=== PATIENT | female | born 1985 | race Caucasian/White ===

== ENCOUNTER 2020-12-14 19:11 | Emergency (ER) | payer OTHER, SELFPAY ==
--- NOTE | ~2020-12-14 | XR_ITS ---
EXAMINATION: XR foot LT min 3V EXAM DATE: 12/14/2020 19:30 INDICATION: Pain lt distal lateral metatarsals x 4 weeks s/p running. TECHNIQUE: Left foot dorsoplantar, lateral and oblique projections obtained and reviewed. Comparison is made to prior examination from 09/16/2016. FINDINGS: Left metatarsal bones unremarkable. No periosteal reaction to suggest a subacute metatar ezequiel stress fracture. Please note that acute stress fractures may not be radiographically apparent. Fo llow-up can be obtained if symptoms persist. No radiopaque foreign bodies identified. IMPRESSION: Unremarkable left foot exam. Follow-up can be obtained if symptoms persist. Reviewed, dictated and finalized at location A.
[2020-12-14 19:16] VITALS: BP 124/76; PULSE 60; RESP 16; TEMP 36.6; O2SAT 100
--- NOTE | 2020-12-14 19:34 | ED.LOWEXIN ---
HPI - Extremity Injury (Lower) General Chief Complaint: Extremity Injury, Lower Stated Complaint: left pain Source: patient Mode of arrival: ambulatory Limitations: no limitations History of Present Illness HPI Narrative: Patient is a 35-year-old female who presents complaining of left foot pain. She denies known injury to the left foot. Patient reports she has been training for the past 22 weeks for the [employer]. She reports over the past month developing pain in the left foot. She reports using ice, denies taking bjfu-evf-womvesh medications. Patient reports she has continued to run. Patient reports increased pain over the past week. She denies significant medical history. She denies all other complaints this time. MD complaint: foot injury Related Data Home Medications Medication Instructions Recorded Confirmed No Home Medications 12/14/20 12/14/20 Allergies Allergy/AdvReac Type Severity Reaction Status Date / Time No Known Allergies Allergy Verified 12/14/20 19:18 Review of Systems Review of Systems: CONSTITUTIONAL: Denies fever, chills, or sweats. EYES: Denies visual changes, redness, or discharge. ENT: Denies rhinorrhea, congestion, sore throat, or otalgia. CARDIOVASCULAR: Denies chest pain, palpitations, or edema. RESPIRATORY: Denies cough or dyspnea. GASTROINTESTINAL: Denies abdominal pain, nausea, vomiting, or diarrhea. GENITOURINARY: Denies dysuria or hematuria. SKIN: Denies rash or itching. MUSCULOSKELETAL: Reports left foot pain. NEUROLOGIC: Denies headache, numbness, dizziness, or weakness. PSYCHIATRIC: Denies anxiety or depression. [facility] Social History Social History (Updated 12/14/20 @ 19:36 by CORNELIUS Bose) Smoking status: Never smoker Alcohol intake: current Alcohol use details: Occasional Substance use: never Living arrangements: with family Comments At the time of signature, I have reviewed and agree with nursing past medical, surgical, social, and family history unless otherwise noted. Please see nursing chart for further information. There is no relevant family history pertinent to the presenting complaint. Exam Narrative: GENERAL: Well-appearing, well-nourished, and in no acute distress. HEAD: Normocephalic, atraumatic. EYES: EOMI. No redness or drainage. Conjunctiva are normal. ENT: Mucous membranes pink and moist. CHEST: No respiratory distress. HEART: Regular rate and rhythm. EXTREMITIES: Normal range of motion. Tenderness with palpation over fourth and fifth metatarsals of left foot, no edema or ecchymosis, no visible deformities, distal sensation intact, good capillary refill SKIN: Warm, dry, no rash. NEURO: No focal deficits. Alert and oriented x3. Gait steady. PSYCH: Normal affect. No signs of depression or anxiety. Course Vital Signs Vital signs: Vital Signs Temperature 36.6 C 12/14/20 19:16 Pulse Rate 60 12/14/20 19:16 Respiratory Rate 16 12/14/20 19:16 Blood Pressure 124/76 12/14/20 19:16 Pulse Oximetry 100 12/14/20 19:16 Temperature 36.6 C 12/14/20 19:16 Pulse Rate 60 12/14/20 19:16 Respiratory Rate 16 12/14/20 19:16 Blood Pressure 124/76 12/14/20 19:16 Pulse Oximetry 100 12/14/20 19:16 MDM - Extremity Injury (Lower) MDM Narrative Medical decision making narrative: Patient's x-ray shows no acute osseous injuries. Discussed with patient possible stress fractures and how they do not show on x-ray. Patient instructed on taking a break from running for a week, rest, ice, elevation and use of Yazan wrap. Patient agrees with plan of care. Patient given referrals for orthopedics and podiatry if pain persist. Patient is stable for discharge to home with outpatient follow-up as needed. Differential Diagnosis Differential diagnosis: Likely other (Sprain, strain, fracture, contusion) Critical Care Time Critical Care Time Critical Care Time: No Discharge Plan Discharge Clinical Impressi
== END 2020-12-14 19:56 | disposition home or self-care (01) ==
PROVIDERS: Emergency Provider Nurse Practitioner; PCP Family Medicine
DX: M79.672 Pain in left foot (principal)
CPT/HCPCS: 73630; 99213; G0463

== ENCOUNTER 2021-02-06 10:24 | Emergency (ER) | payer OTHER, SELFPAY ==
--- NOTE | ~2021-02-06 | US_ITS ---
EXAMINATION: US pelvic complete w TV DATE: 02/06/2021 16:07 INDICATION: Left adnexal pain. TECHNIQUE: Multiple transabdominal and transvaginal sonographic images of the pelvis were obtained. COMPARISON: Ultrasound 09/18/2018 FINDINGS: TRANSABDOMINAL ULTRASOUND: The uterus measures 7.2 x 3.2 x 3.5 cm. There is no free fluid in the pelvis. TRANSVAGINAL ULTRASOUND: The endometrial complex measures 3 mm in thickness. There is an intrauterine device in expected posit ion. The right ovary measures 2.7 x 2.0 x 1.9 cm. There is left-sided hydrosalpinx containing hypoech oic material. The left ovary is not well visualized. IMPRESSION: 1. Left-sided hydrosalpinx. Left ovary not well visualized. Reviewed, dictated and finalized at location A. [employer]
[2021-02-06 11:18] VITALS: BP 131/97; PULSE 74; RESP 18; TEMP 36.7; O2SAT 100
[2021-02-06 11:31] LABS: Basophils Percent Auto 0.3 % (0.2-1.2); Eosinophils Absolute Auto 0.1 K/mm3 (0-0.3); Eosinophils Percent Auto 1.1 % (0-4.4); Hematocrit 44.7 % (37.0-47.0); Hemoglobin 15.2 g/dL (12.0-15.0); Immature Granulocyte Absolute 0.04 K/mm3 (0.00-0.031); Immature Granulocyte Percent A 0.4 % (0-0.5); Lymphocytes Absolute Auto 2.24 K/mm3 (0.9-3.2); Lymphocytes Percent Auto 23.9 % (18.3-44.2); Mean Corpuscular Hemoglobin 31.1 pg (26-34); Mean Corpuscular Volume 91.6 fl (80-100); Mean Platelet Volume 11.8 fl (7.4-10.4); Monocytes Absolute Auto 0.6 K/mm3 (0.1-0.6); Monocytes Percent Auto 6.7 % (2.6-8.5); Neutrophils Absolute Auto 6.4 K/mm3 (1.3-6.7); Neutrophils Percent Auto 67.6 % (45.5-73.1); Platelet Count Result 188 k/mm3 (150-375); Red Blood Count 4.88 M/mm3 (4.2-5.4); Red Cell Distribution Width 12.6 % (11.5-14.5); White Blood Count 9.4 K/mm3 (4.5-10.0)
[2021-02-06 11:44] LABS: Alanine Aminotransferase 28 U/L (4-35); Albumin Level 4.7 g/dL (3.5-5.1); Alkaline Phosphatase 55 U/L (38-126); Anion Gap 6 mmol/L (8-16); Aspartate Amino Transferase 27 U/L (14-36); Bilirubin,Total 0.8 mg/dL (0.2-1.3); Blood Urea Nitrogen 10 mg/dL (7-17); Calcium 9.8 mg/dL (8.4-10.2); Carbon Dioxide 30 mmol/L (22-30); Chloride 100 mmol/L (98-107); Estimated CRCL calculation 99 ml/min; Estimated Glomerular Filt Rate > 60; Glucose 94 mg/dL (65-110); Lipase 84 U/L (23-300); Sodium 136 mmol/L (137-145)
[2021-02-06 11:54] LABS: Add Urine Microscopic? NO; Appearance Urine Clear (Clear); Bilirubin Urine Negative (Negative); Blood Urine Negative (Negative); Color Urine Yellow (Yellow); Glucose Urine UA Negative (Negative); Ketones Urine Negative (Negative); Leukocyte Esterase Ur Negative LEU/UL (Negative); Nitrate Urine Negative (Negative); Protein Urine Negative (Negative); Specific Grav Ur 1.009 (1.001-1.035); Urobilinogen Urine Negative mg/dL (<2.0)
[2021-02-06 15:00] VITALS: BP 134/68; PULSE 95; RESP 18; O2SAT 100
--- NOTE | 2021-02-06 15:40 | PC.NURSE ---
Pt taken to US
[2021-02-06 16:05] VITALS: BP 112/76; PULSE 73; RESP 18; O2SAT 100
--- NOTE | 2021-02-06 16:24 | ED.ABDPAIN ---
HPI - Abdominal Pain General Chief Complaint: Abdominal Pain Stated Complaint: Abdominal pain. Time Seen by Provider: 02/06/21 14:56 History of Present Illness HPI narrative: Patient is a 35-year-old female who presents to the ER with pain in the left adnexal region. Reports symptoms began about 5 days ago. Feels similar to previous ovarian cyst so she has been taking anti-inflammatories without improvement. Had increasing pain last night and contacted her doctor who recommended she come here. She reports she had some dark bloody vaginal discharge over the last couple days. She has a IUD and it does not typically have periods. Related Data Allergies Allergy/AdvReac Type Severity Reaction Status Date / Time No Known Allergies Allergy Verified 02/06/21 15:04 Review of Systems Review of Systems: All systems reviewed & are unremarkable except as noted in HPI and below Constitutional: Constitutional: Denies chills, Denies fever(s) and Denies weakness Cardiovascular: Cardiovascular: Denies chest pain, Denies rapid heart rate and Denies radiating jaw, neck or arm pain Respiratory: Respiratory: Denies cough and Denies dyspnea Gastrointestinal: Gastrointestinal: Reports abdominal pain, Denies diarrhea, Denies nausea and Denies vomiting Genitourinary: Genitourinary: Reports abnormal vaginal bleeding, Denies dysuria, Reports pelvic pain, Denies flank pain and Denies vaginal discharge PMFSH Past Medical History Medical History (Updated 02/06/21 @ 23:37 by Romero Rueda MD) Healthy female adult Surgical History Surgical History (Updated 02/06/21 @ 23:37 by Romero Rueda MD) No pertinent past surgical history Social History Social History (Updated 12/14/20 @ 19:36 by CORNELIUS Bose) Smoking status: Never smoker Alcohol intake: current Alcohol use details: Occasional Substance use: never Exam Narrative: GENERAL: Well-appearing, well-nourished, and in no acute distress. HEAD: Normocephalic, atraumatic. CHEST: Clear to auscultation. No respiratory distress. HEART: Regular rate and rhythm. Normal peripheral pulses. ABDOMEN: Soft, mild left lower quadrant tenderness, nondistended. : Normal-appearing external genitalia. Vagina without discharge, scant blood, cervix closed and nontender. EXTREMITIES: Normal range of motion. No edema. SKIN: Warm, dry, no rash. NEURO: Alert and oriented x3. PSYCH: Normal mood and affect. Course Course Emergency Course: Discussed with Dr. Banuelos. Pelvic exam performed and culture sent. Patient be treated for pelvic infection to be cautious. Will need follow-up in clinic. Patient aware of diagnosis and treatment plan. Vital Signs Vital signs: Vital Signs Temperature 98.0 F 02/06/21 11:18 Pulse Rate 74 02/06/21 11:18 Respiratory Rate 18 02/06/21 11:18 Blood Pressure 131/97 H 02/06/21 11:18 Pulse Oximetry 100 02/06/21 11:18 Temperature 98.0 F 02/06/21 11:18 Pulse Rate 63 02/06/21 18:15 Respiratory Rate 16 02/06/21 18:15 Blood Pressure 119/86 02/06/21 18:15 Pulse Oximetry 100 02/06/21 18:15 MDM - Abdominal Pain Lab Data Result diagrams: 02/06/21 11:25 02/06/21 11:25 Labs: Lab Results 02/06/21 02/06/21 02/06/21 Range/Units 11:25 11:25 11:37 WBC 9.4 (4.5-10.0) K/mm3 RBC 4.88 (4.2-5.4) M/mm3 Hgb 15.2 H (12.0-15.0) g/dL Hct 44.7 (37.0-47.0) % MCV 91.6 (80-100) fl MCH 31.1 (26-34) pg MCHC 34.0 (32-36) g/dl RDW 12.6 (11.5-14.5) % Plt Count 188 (150-375) k/mm3 MPV 11.8 H (7.4-10.4) fl Immature Gran % (Auto) 0.4 (0-0.5) % Neut % (Auto) 67.6 (45.5-73.1) % Lymph % (Auto) 23.9 (18.3-44.2) % [place] % (Auto) 6.7 (2.6-8.5) % Eos % (Auto) 1.1 (0-4.4) % Baso % (Auto) 0.3 (0.2-1.2) % Lymph # (Auto) 2.24 (0.9-3.2) K/mm3 [place] # (Auto) 0.6 (0.1-0.6) K/mm3 Eos # (Auto) 0.1 (0-0.3) K/mm3 Baso # (Au
[2021-02-06 17:00] VITALS: BP 114/77; PULSE 79; RESP 18; O2SAT 100
[2021-02-06] MEDS: LIDOCAINE HCL 1% LOCAL INJ 20 ML VIAL 2.1 ML XX (17:30)
[2021-02-06] MEDS: cefTRIAXone 1 GM VIAL 0.5 GM IM (17:30)
[2021-02-06 17:33] VITALS: BP 139/93; PULSE 73; RESP 18; O2SAT 100
[2021-02-06 18:15] VITALS: BP 119/86; PULSE 63; RESP 16; O2SAT 100
== END 2021-02-06 18:30 | disposition home or self-care (01) ==
PROVIDERS: Emergency Medicine; Emergency Provider Emergency Medicine; PCP Family Medicine
DX: N70.11 Chronic salpingitis (principal)
CPT/HCPCS: 36415; 76830; 76856; 80053; 81003; 81025; 83690; 85025; 87070; 87491; 87591; 87808; 96372; 99284; J0696

== ENCOUNTER → 2021-02-28 11:02 | Outpatient (CLI) | payer OTHER, SELFPAY ==
--- NOTE | ~2021-02-28 | US_ITS ---
EXAMINATION: US pelvic complete w TV DATE: 02/28/2021 11:30 INDICATION: Left hydrosalpinx Comparison:02/06/2021 TECHNIQUE: Multiple transabdominal and endovaginal sonographic images of the pelvis performed. FINDINGS: The uterus measures 7.4 x 3.2 x 3.9 cm. There is an IUD located in the endometrium. The end ometrial complex measures 4 mm. The right ovary measures 2.3 x 1.6 x 2.7 cm and the left ovary measures 2.1 x 1.8 x 0.9 cm. No eviden ce for hydrosalpinx on the current study. There are small follicles in each ovary. Normal doppler sig nal in both ovaries. There is no free fluid in the pelvis. There are no abnormal masses seen on either side. IMPRESSION: 1. Unremarkable pelvic ultrasound. Reviewed, dictated and finalized at location A. [employer]IC
== END ==
PROVIDERS: Visit Provider Obstetrics & Gynecology
DX: N70.11 Chronic salpingitis (principal)
CPT/HCPCS: 76830; 76856

== ENCOUNTER 2023-01-06 08:05 | Emergency (ER) | payer OTHER, SELFPAY ==
--- NOTE | 2023-01-06 08:08 | ED.URI ---
HPI - URI/Sore Throat General Chief Complaint: Upper Respiratory Infection Stated Complaint: Cold symptoms Time Seen by Provider: 01/06/23 08:12 Source: patient, RN notes reviewed and old records reviewed Mode of arrival: ambulatory Limitations: no limitations History of Present Illness HPI Narrative: 37-year-old female presents to the [facility] with sinus congestion, body aches, fatigue and cough 3 weeks ago. States all other symptoms improved except for the cough has been lingering. Has used multiple [id number] products with no relief. States that she did run 18 miles this past week but the cough keeps coming back. Denies any chest pain or abdominal pain. Denies any fevers. Related Data Allergies Allergy/AdvReac Type Severity Reaction Status Date / Time No Known Allergies Allergy Verified 01/06/23 08:15 Review of Systems Review of Systems: All systems reviewed & are unremarkable except as noted in HPI and below Constitutional: Constitutional: Reports no additional constitutional complaints Eyes: Eyes: Reports no additional eye complaints ENT: Reports system reviewed and no additional complaints, except as documented Cardiovascular: Cardiovascular: Reports no additional cardiovascular complaints, Denies chest pain and Denies dyspnea Respiratory: Respiratory: Reports as per HPI, Denies chest congestion, Reports cough, Reports excessive phlegm production and Denies dyspnea Gastrointestinal: Gastrointestinal: Reports no additional gastrointestinal complaints, Denies abdominal pain, Denies nausea and Denies vomiting Musculoskeletal: Musculoskeletal: Reports no additional musculoskeletal complaints Integumentary/Breasts: Skin/Breast: Reports system reviewed and no additional complaints, except as docu Neurologic: Reports system reviewed and no additional complaints, except as documented Psychiatric: Psychiatric: Reports no additional psychiatric complaints Allergic/Immunologic: Allergic/Immunologic: Reports no additional allergic/immunologic complaints [facility] Past Medical History Medical History Healthy female adult Surgical History Surgical History No pertinent past surgical history Social History Social History Smoking status: Never smoker Alcohol intake: current Alcohol use details: Occasional Substance use: never Living arrangements: with family Comments At the time of my signature, I reviewed and agree with the nursing past medical, surgical, social, and family history. There is no relevant family history pertinent to the patient complaint. Exam Const: General: cooperative, healthy appearing, comfortable, no acute distress, well developed, alert and well nourished Nutritional Appearance: well nourished Orientation/consciousness: patient oriented x3 Limitations: no limitations HENMT: Head: normal to inspection Ears: hearing grossly normal bilaterally, external ears normal, TM's normal bilaterally, EAC's normal, mastoids normal and no periauricular adenopathy Face/Nose/Sinus: Normal external nose present, Normal nares present, Normal nasal mucous membranes and turbinates present, normal facial exam and face symmetric Face and sinus: normal facial exam and face symmetric Mouth: Yes Normal oral and palatal mucosa present, Yes lip normal and Yes moist mucous membranes Throat: posterior oropharynx normal, tonsils normal and uvula midline Eyes: General: appearance normal, both eyes and all related structures Alignment and Position: alignment normal Periorbital: periorbital findings normal Pupils: Equal, round and reactive pupils present EOM: EOMs intact bilaterally Neck: Neck: normal visual inspection, full ROM, no lymphadenopathy and no meningeal signs Chest: Chest palpation & inspection: normal inspection of the chest Resp:
[2023-01-06 08:14] VITALS: BP 119/89; PULSE 60; RESP 16; TEMP 36.9; O2SAT 100
== END 2023-01-06 08:29 | disposition home or self-care (01) ==
PROVIDERS: Emergency Provider Nurse Practitioner; PCP Emergency Medicine
DX: J40 Bronchitis, not specified as acute or chronic (principal)
CPT/HCPCS: 99213; G0463

== ENCOUNTER 2024-01-30 10:58 | Emergency (ER) | payer OTHER, SELFPAY ==
[2024-01-30 11:36] VITALS: BP 125/88; PULSE 71; RESP 16; TEMP 37.1; O2SAT 100
--- NOTE | 2024-01-30 11:38 | ED_ITS ---
HPI - URI/Sore Throat General Chief Complaint: Upper Respiratory Infection Stated Complaint: sorethroat Time Seen by Provider: 01/30/24 11:40 Source: patient, RN notes reviewed and old records reviewed Mode of arrival: ambulatory Limitations: no limitations History of Present Illness HPI Narrative: 38 year old female presents to [facility] care with complaints of sore throat, headache,chills with no fever, fatigue since last night. Patient reports concern for strep throat reporting that son tested positive for strep throat on past Saturday. Patient reports pain increased with swallowing, has not taken any OTC medication for her symptoms MD elicited complaint: sore throat and other (headache and fatigue) Pertinent past history: sinusitis Onset (ago): day(s) (day 2 of symptoms) Pain scale (0-10): 5 Able to tolerate fluids by mouth: Yes Treatments prior to arrival: none Related Data Allergies Allergy/AdvReac Type Severity Reaction Status Date / Time No Known Allergies Allergy Verified 01/30/24 11:35 Review of Systems Review of Systems: CONSTITUTIONAL:Reports malaise, chills,no sweats, or known fevers, fatigue EYES: Denies visual changes, redness, or discharge. ENT: Reports no rhinorrhea, congestion, sinus pain,no otalgia and positive for sore throat. CARDIOVASCULAR: Denies chest pain, palpitations, or edema. RESPIRATORY: Reports no cough.? Denies dyspnea. GASTROINTESTINAL: Denies abdominal pain, nausea, vomiting, diarrhea SKIN: Denies rash or itching. MUSCULOSKELETAL: Denies myalgia. NEUROLOGIC: Reports headache. All systems reviewed & are unremarkable except as noted in HPI and below PMFSH Past Medical History Medical History Healthy female adult Sinusitis Surgical History Surgical History H/O LEEP Social History Social History Smoking status: Never smoker Alcohol intake: current Alcohol use details: Occasional Substance use: never Living arrangements: with family Comments At time of signature, agree with nursing past medical, surgical, social and family history. There is no relevant family history pertinent to the presenting complaint Exam Narrative: GENERAL: Well-appearing, well-nourished, and in no acute distress. HEAD: Normocephalic EYES: PERRLA, conjunctivae clear ENT: Nares clear, turbinates edematous and erythematous, clear discharge. Mucous membranes moist. TM pearly darnell with dull light reflex bilaterally; no tragal tenderness. Oropharynx erythematous without lesions. Tonsils red not enlarged and without exudate, no drooling, no hoarseness, no trismus, uvula midline.positive for hoarseness NECK: Supple. No lymphadenopathy CHEST: Clear to auscultation, breath sounds equal. No wheezing, rhonchi, rales, or stridor. No respiratory distress, speaks in full sentences.no cough noted,SAO2 100% on room air HEART: Regular rate and rhythm. No murmur heard. SKIN: Warm, dry, no rash. NEURO: Alert and oriented x3. PSYCH: Normal mood and affect Course Course Emergency Course: Patient is aware of diagnosis, understands and agrees to treatment plan.? Anticipatory guidance given.? Patient agrees to follow-up as directed and is aware of reasons to seek care at the emergency department. Portions of this record may have been created with voice recognition software Level of Care: Express Care Visit Vital Signs Vital signs: Vital Signs Temperature 37.1 C 01/30/24 11:36 Pulse Rate 71 01/30/24 11:36 Respiratory Rate 16 01/30/24 11:36 Blood Pressure 125/88 01/30/24 11:36 Pulse Oximetry 100 01/30/24 11:36 Temperature 37.1 C 01/30/24 11:36 Pulse Rate 71 01/30/24 11:36 Respiratory Rate 16 01/30/24 11:36 Blood Pressure 125/88 01/30/24 11:36 Pulse Oximetry 100 01/30/24 11:36 Reviewed MDM - URI/Sore Throat MDM Narrative Medical decision making narrative: Differential diagnosis considered: Pham virus, strep pharyngitis, allergic rhinitis, upper respiratory tract infection, sinusitis, rhinosinusitis, nasopharyngitis. viral pharyngitis, otitis media, otitis externa, pneumonia, bronchitis, viral cough syndrome, viral syndrome, and influenza.? Exam findings show no acute concerns or changes; patient is non-toxic appearing and is in no distress.? Patient is appropriate for outpatient treatment and follow-up. Differential Diagnosis Differential diagnosis: Likely upper respiratory infection, sinusitis, viral infection, pharyngitis and other (pharyngitis, positive exposure to strep) Lab Data Attestation: I reviewed the patient's lab results. Lab results narrative: strep screen negative culture sent Labs: Lab Results 01/30/24 Range/Units 11:36 POC Grp A Strep Screen Negative (Negative) Critical Care Time Critical Care Time Critical Care Time: No Discharge Plan Discharge Clinical Impression: Pharyngitis, Exposure to strep throat Patient Disposition: Home, Self-Care Condition: Stable Instructions: Antibiotic Form, Pharyngitis (ED) Additional Instructions: . Take the entire course of antibiotics. Throw away your current toothbrush and begin using a new toothbrush in 48 hours in order to prevent re-infection. Sanitize all reusable water bottles . Do not share items with others. Salt water gargles may alleviate some of the throat discomfort. You can take Tylenol or ibuprofen per the package instructions for pain/fever. If your symptoms persist, change or worsen significantly before you can contact your personal physician then please, without delay, go to the emergency department for further evaluation. Follow-up with PCP in 7-10 days or sooner if needed Follow up with PCP soon in regards to your blood pressure which is elevated above threshold for referral. Blood pressure above 120/80 may indicate pre- hypertension. 125/88 minimal diastolic elevation Your strep test today was negative. A throat culture will be sent to the laboratory for further testing. IF the test is positive, you will receive a phone call within 48 hours if negative if you so desire you can stop the antibiotic at that time Prescriptions: New amoxicillin 500 mg capsule 500 mg PO Q12H Qty: 20 0RF Follow-up/Referrals: Dev Walters MD [Primary Care Provider] - Time of Disposition: 11:55 Quality [place] Coma Scale Eyes: Open Verbal: Oriented and Alert Motor: Follows Commands [place] Coma Total Score: 15
[2024-01-30 11:45] LABS: EDSTREPNEGPOS1 Negative (Negative)
== END 2024-01-30 11:59 | disposition home or self-care (01) ==
PROVIDERS: Emergency Provider Registered Nurse; PCP Emergency Medicine
DX: J02.9 Acute pharyngitis, unspecified (principal); Z20.818 Contact with and (suspected) exposure to other bacterial communicable diseases
CPT/HCPCS: 87081; 87880; 99213; G0463